=== PATIENT | female | born 1950 | race African-American/Black ===

== ENCOUNTER 2018-12-01 16:38 | Emergency (ER) | payer MEDICARE, OTHER ==
[~2018-12-01] VITALS: Ht 157.5 cm; Wt 93.4 kg
--- OUTSIDE RECORDS SUMMARY | 2018-12-01 16:41 | XMS REPORT | Clinical Summary ---
Author Author BURTON exsulinBenewah Community HospitalVital Metrix [facility] Organization [facility] Address Unknown Phone Unavailable Care Team Providers Care Deli Associate Name Role Phone Landry Kerr MD PCP Unavailable Allergies Comments Active Allergy Reactions Severity Noted Date Ciprofloxacin Swelling Low 02/23/2014 Meperidine Itching, Low 02/23/2014 Swelling Erythromycin Swelling Low 07/09/2014 Pt not aware of this allergy. Erythropoietin Analogues 02/23/2014 Fever. Pneumococcal Vaccine Swelling, Medium 02/23/2014 Other (See Comments) Butorphanol Tartrate Itching, Low 02/23/2014 Swelling Pentazocine Lactate Itching, Low 02/23/2014 Swelling Medications End Date Status Medication Sig Dispensed Refills Start Date Active traMADol (ULTRAM) 50 mg Take 50 mg by 0 tablet mouth every 6 (six) hours as needed for Pain. Active gabapentin (NEURONTIN) Take 600 mg 0 600 MG tablet by mouth 4 (four) times daily . Active diazepam (VALIUM) 10 MG Take 5 mg by 0 tablet mouth as needed for Anxiety . Active baclofen (LIORESAL) 10 MG Take 10 mg by 0 tablet mouth as needed . Active amitriptyline (ELAVIL) Take 100 mg 0 100 MG tablet by mouth every night as needed for Sleep. Active loratadine (CLARITIN) 10 Take 10 mg by 0 mg tablet mouth daily. Active oxybutynin (DITROPAN-XL) Take 5 mg by 0 5 MG 24 hr tablet mouth daily . Active azelastine (ASTELIN) 137 2 sprays by 0 mcg (0.1 %) nasal spray Nasal route daily Use in each nostril as directed . Active budesonide-formoterol Inhale 2 0 (SYMBICORT) 80-4.5 puffs by mcg/actuation inhaler mouth via inhaler as needed . Active levalbuterol (XOPENEX Inhale 1 puff 0 HFA) 45 mcg/actuation by mouth via inhaler inhaler as needed for Wheezing . Active SUMAtriptan (IMITREX) 25 Take 25 mg by 0 MG tablet mouth every 2 (two) hours as needed for Migraine. Active pantoprazole (PROTONIX) Take 40 mg by 0 40 MG tablet mouth daily. Active interferon beta-1a Inject 0 (AVONEX) 30 mcg/0.5 mL intramuscular PnIj ly once a week. Active aspirin 81 MG EC tablet Take 81 mg by 0 mouth daily. Active ipratropium (ATROVENT) Take 500 mcg 0 0.02 % nebulizer solution by nebulization as needed for Wheezing. Active carvedilol (COREG) 12.5 Take 12.5 mg 0 MG tablet by mouth 2 (two) times daily with breakfast and dinner. Active losartan-hydroCHLOROthiaz Take 1 tablet 0 olivia (HYZAAR) 50-12.5 mg by mouth per tablet daily. 03/27/2018 Discontinued metoprolol (LOPRESSOR) 25 Take 25 mg by 0 MG tablet mouth 2 (two) times daily. 01/28/2018 Discontinued losartan (COZAAR) 50 MG Take 100 mg 0 tablet by mouth daily . 03/27/2018 Discontinued levalbuterol (XOPENEX) Take 1 ampule 0 0.31 mg/3 mL nebulizer by solution nebulization every 4 (four) hours as needed for Wheezing. 02/28/2018 losartan (COZAAR) 100 MG Take 1 tablet 30 tablet 0 tablet (100 mg 8 total) by mouth daily for 30 days. 03/27/2018 Discontinued cyclobenzaprine Take 1 tablet 10 tablet 0 (FLEXERIL) 10 MG tablet (10 mg total) 8 by mouth 2 (two) times daily as needed for up to 10 doses. Active Problems Problem Noted Date Hypertensive urgency 01/26/2018 Acute chest pain 01/25/2018 Arthritis of right knee 05/05/2015 Knee joint replacement status 05/05/2015 Encounters Care Team Description Date Type Specialty Bashir Rivera MD 03/28/2018 Anesthesia Event London Quiroga MD INJECTION,EPIDURAL STEROID LUMBAR TRANSFORAMINAL 03/28/2018 Surgery London Quiroga MD 03/28/2018 Hospital Encounter Resource, [facility] Phone 03/27/2018 Hospital Pre-Admission Testing Encounter Aleksandr Bonilla MD Bilateral leg pain (Primary Dx); Essential hypertension; Obesity, unspecified classification, unspecified obesity type, unspecified whether serious comorbidity present 02/12/2018 Emergency Emergency Medicine 01/26/2018 Orders Only General Internal Medicine Alexis Bates DO Maredia, Mustaq Kasam, MD Acute chest pain (Primary Dx); Tension headache; Hypertensive urgency; Obesity (BMI 30-39.9) 01/24/2018 Hospital General Internal Medicine - Encounter 01/28/2018 after 11/30/2017 Social History Date Tobacco Use Types Packs/Day Years Used Quit: 08/10/1985 Former Smoker 2 10 Smokeless Tobacco: Never Used Tobacco Cessation: Counseling Given: No Comments: QUIT 1985 Alcohol Use Drinks/Week oz/Week Comments Yes "very seldom" Sex Assigned at Date Recorded Not on file Industry Job Start Date Occupation Not on file Not on file Not on file Travel End Travel History Travel Start No recent travel history available. Last Filed Vital Signs Time Taken Vital Sign Reading 03/28/2018 1:59 PM JEWELRY FINISHER Blood Pressure 121/89 03/28/2018 1:59 PM JEWELRY FINISHER Pulse 64 03/28/2018 1:59 PM JEWELRY FINISHER Temperature 36.7 C (98 F) 03/28/2018 1:59 PM JEWELRY FINISHER Respiratory Rate 14 03/28/2018 1:59 PM JEWELRY FINISHER Oxygen Saturation 98% 01/28/2018 9:38 AM CDT Inhaled Oxygen 21% Concentration 03/28/2018 10:39 AM JEWELRY FINISHER Weight 92.4 kg (203 lb 9.6 oz) 03/28/2018 10:39 AM JEWELRY FINISHER Height 162.6 cm (5' 4") 03/28/2018 10:39 AM JEWELRY FINISHER Body Mass Index 34.95 Plan of Treatment Not on file Implants Device Identifier Shelf Expiration Date Model / Serial / Lot Implanted Type Area Manufactur er 11/16/2016 [id number] / / [id number] Cement,Bone Simplex Hv Full Dose Cement/Patrick Right: Knee Tori (Each) - [id number] ler/Adhesi Orthopaedi Implanted: Qty: 1 on 05/05/2015 by ve cs Destiny Stack MD 04/20/2025 [id number] / / [id number] Tibial Tray,[place] Partial Knee Joints Right: Knee [employer] Medial Left Std Sz B - [id number] Implanted: Qty: 1 on 05/05/2015 by Destiny Stack MD 03/10/2025 [id number] / / [id number] Fem Comp,[place]king Partial Knee Uni Joints Right: Knee [employer] Cocr Small - [id number] Implanted: Qty: 1 on 05/05/2015 by Destiny Stack MD 02/23/2020 [id number] / / [id number] Tibial Bearing,Meniscal Mayking Joints Right: Knee BIOMET/O.E Anatomic Small Right Sz 4 - .C. [id number] Implanted: Qty: 1 on 05/05/2015 by Destiny Stack MD Procedures Comments Procedure Name Priority Date/Time Associated Diagnosis FL FACING END TRIMMER IN OR 30 Routine 03/28/2018 MINUTE INCREMENTS 1:38 PM JEWELRY FINISHER PROCEDURE W/ C-ARM 03/28/2018 Osteoarthritis of spine 1:00 PM JEWELRY FINISHER with radiculopathy, lumbar region Special Needs (C-ARM) INJECTION,EPIDURAL 03/28/2018 Osteoarthritis of spine STEROID LUMBAR 1:00 PM JEWELRY FINISHER with radiculopathy, TRANSFORAMINAL lumbar region Special Needs (C-ARM) ED ECG INTERPRETATION Routine 02/14/2018 11:38 PM CDT VENOUS DOPPLER LEG, LEFT STAT 02/12/2018 5:50 PM CDT ECG 12-LEAD Routine 02/12/2018 2:52 PM CDT Procedure Note - Interface, External Ris In - 02/12/2018 5:19 PM CDT Ventricula r Rate 63 BPM Atrial Rate 63 BPM P-R Interval 176 ms QRS Duration 88 ms Q-T Interval 416 ms QTC Calculatio n(Bazett) 425 ms P Abernathy 70 degrees R Abernathy 38 degrees T Abernathy 34 degrees Normal sinus rhythm Normal ECG When compared with ECG of 8 12:06, No significan t change was found ECG 12-LEAD STAT 02/12/2018 2:52 PM CDT CBC W/PLT COUNT & AUTO STAT 02/12/2018 DIFFERENTIAL 2:12 PM CDT B-TYPE NATRIURETIC FACTOR STAT 02/12/2018 (BNP) 2:12 PM CDT PT/APTT STAT 02/12/2018 2:12 PM CDT CBC W/PLT COUNT & AUTO STAT 02/12/2018 DIFFERENTIAL 2:12 PM CDT TROPONIN I STAT 02/12/2018 2:12 PM CDT MAGNESIUM STAT 02/12/2018 2:12 PM CDT BASIC METABOLIC PANEL (7) STAT 02/12/2018 2:12 PM CDT XR CHEST 1 VIEW STAT 02/12/2018 PORTABLE/BEDSIDE 2:06 PM CDT RHYTHM STRIP - SCAN 01/29/2018 3:31 PM CDT REPORT OF PROCEDURE - 01/29/2018 ENDOSCOPY SCAN 3:30 PM CDT MR ORBIT FACE NECK W & WO STAT 01/28/2018 CONTRAST 12:09 PM CDT MR BRAIN WITH IV CONTRAST STAT 01/28/2018 12:09 PM CDT MR BRAIN WITHOUT IV Routine 01/27/2018 CONTRAST 4:34 PM CDT NM PARATHYROID IMAGING Routine 01/27/2018 WITH TOMOGRAPHIC SPECT 3:49 PM CDT BASIC METABOLIC PANEL (7) Routine 01/27/2018 5:59 AM CDT CALCIUM, 24 HOUR URINE Routine 01/26/2018 10:28 PM CDT ECHOCARDIOGRAM REPORT - 01/26/2018 SCAN 12:20 PM CDT 2D ECHO W/ DOPPLER Routine 01/26/2018 (CW/PW/COLOR) 9:26 AM CDT TROPONIN I STAT 01/26/2018 8:39 AM CDT VITAMIN D, 25-HYDROXY Routine 01/26/2018 3:46 AM CDT COMPREHENSIVE METABOLIC Routine 01/26/2018 PANEL 3:46 AM CDT CALCIUM, IONIZED Routine 01/26/2018 3:46 AM CDT TROPONIN I STAT 01/26/2018 1:16 AM CDT TSH/FREE T4 IF INDICATED Routine 01/25/2018 5:16 PM CDT PTH, INTACT Routine 01/25/2018 5:16 PM CDT TROPONIN I STAT 01/25/2018 7:56 AM CDT BASIC METABOLIC PANEL (7) STAT 01/25/2018 5:31 AM CDT CBC W/PLT COUNT & AUTO STAT 01/25/2018 DIFFERENTIAL 4:07 AM CDT CBC W/PLT COUNT & AUTO STAT 01/25/2018 DIFFERENTIAL 4:07 AM CDT LIPID PANEL STAT 01/25/2018 4:07 AM CDT HEMOGLOBIN A1C STAT 01/25/2018 4:07 AM CDT ED ECG INTERPRETATION Routine 01/25/2018 3:[address]/CTA BRAIN STAT 01/24/2018 10:15 PM CDT XR CHEST 1 VIEW STAT 01/24/2018 PORTABLE/BEDSIDE 9:19 PM CDT CBC W/PLT COUNT & AUTO STAT 01/24/2018 DIFFERENTIAL 9:00 PM CDT B-TYPE NATRIURETIC FACTOR STAT 01/24/2018 (BNP) 9:00 PM CDT PT/APTT STAT 01/24/2018 9:00 PM CDT CBC W/PLT COUNT & AUTO STAT 01/24/2018 DIFFERENTIAL 9:00 PM CDT TROPONIN I STAT 01/24/2018 9:00 PM CDT MAGNESIUM STAT 01/24/2018 9:00 PM CDT BASIC METABOLIC PANEL (7) STAT 01/24/2018 9:00 PM CDT after 11/30/2017 Results * [place] Oil Fire Specialist in OR 30 minute increments (03/28/2018 1:38 PM JEWELRY FINISHER) Specimen Narrative Performed At FINAL REPORT [facility] Fluoroscopic spot imaging was performed at the time of the procedure by the ordering service. This examination is nondiagnostic. Fluoroscopy was not performed by the undersigned, and the radiologist was not present at the time of examination. Interpretation of the images was not requested. Total fluoroscopy time:28.7 seconds Total number of films: 2 Please refer to the referring physician's procedure report for complete detail. Signed: Karyna Hoang MD Report Verified Date/Time:03/28/2018 15:12:50 Reading Location: [address] Radiology Reading Room Procedure Note Interface, External Ris In - 03/28/2018 3:15 PM JEWELRY FINISHER FINAL REPORT Fluoroscopic spot imaging was performed at the time of the procedure by the ordering service. This examination is nondiagnostic. Fluoroscopy was not performed by the undersigned, and the radiologist was not present at the time of examination. Interpretation of the images was not requested. Total fluoroscopy time: 28.7 seconds Total number of films: 2 Please refer to the referring physician's procedure report for complete detail. Signed: Karyna Hoang MD Report Verified Date/Time: 03/28/2018 15:12:50 Reading Location: [address] Radiology Reading Room Performing Organization Address City/State/Zipcode Phone Number RIS * ED ECG Interpretation (02/14/2018 11:38 PM CDT) Only the most recent of 2 results within the time period is included. Narrative Performed At LyleAleksandr MD 02/14/2018 11:38 PM ECG/EKG Interpretation Date/Time: 02/12/2018 2:52 PM Performed by: ALEKSANDR BONILLA Authorized by: ALEKSANDR BONILLA The ECG was interpreted by ED physician. The ECG is interpreted as sinus rhythm. Rate is normal rate. Heart rate is 63 BPM. Conduction: conduction normal. ST segments normal. T waves normal. Abernathy is normal. Clinical Impression: abnormal ECGECG reviewed and does not meet STEMI criteria. Patient tolerance: Patient tolerated the procedure well with no immediate complications * Venous doppler leg, left (02/12/2018 5:50 PM CDT) Ejection Fraction [facility] ECHO HEARTLAB [facility] Specimen Impressions Performed At Left Impression [facility] 1. There is no deep venous obstruction in the common femoral, profunda [facility] femoral, femoral, popliteal, posterior tibial or peroneal veins. 2. There is no superficial venous obstruction in the great saphenous vein. Conclusions Summary Venous duplex imaging and compression of the left lower extremity were performed. The veins were adequately visualized. The left venous system was patent and compressible with no evidence of thrombus. The venous Doppler waveforms were phasic with respiration . Signature Velocities are measured in cm/s ; Diameters are measured in cm Narrative Performed At PV LAB - Lower Extremities DVT Study [facility]CHO [facility]ART[facility] Demographics [facility] Patient Name PIERO STOVER Date of Study02/12/2018 CHRIS [id number] Visit Number [id number] Gender Female Accession Number [id number] Date of Birth1950 [facility]isa Hernandez Physician SonographerKailash DavilaInterpreting Marcy Castillo, Michelle SHARP, BIB Procedure Type of Study: Veins: Lower Extremities DVT Study, VENOUS DOPPLER LEG, LEFT. Indications for Study:Leg swelling. Patient Status:STAT. Study Location:Portable. Technical Quality:Adequate visualization. Risk Factors History of Disease +---------+----+ + !Diagnosis!Date!Comments ! +---------+----+ + !Other!!Anxiety, Arthritis, Asthma, CVA, MS, Morbid Obesity! +---------+----+ + Procedure Note Interface, External Ris In - 02/12/2018 7:09 PM CDT PV LAB - Lower Extremities DVT Study Demographics Patient Name PIERO STOVER Date of Study 02/12/2018 CHRIS Age 67 Visit Number [id number] Gender Female Accession Number [id number] Date of 1950 Referring [facility] Room Number ED8 Physician Assistant Boiler Operator Kailash Davila Interpreting Marcy Castillo, T Physician , BIB Procedure Type of Study: Veins: Lower Extremities DVT Study, VENOUS DOPPLER LEG, LEFT. Indications for Study:Leg swelling. Patient Status:STAT. Study Location:Portable. Technical Quality:Adequate visualization. Risk Factors History of Disease +---------+----+ + !Diagnosis!Date!Comments ! +---------+----+ + !Other ! !Anxiety, Arthritis, Asthma, CVA, MS, Morbid Obesity ! +---------+----+ + Impressions Left Impression 1. There is no deep venous obstruction in the common femoral, profunda femoral, femoral, popliteal, posterior tibial or peroneal veins. 2. There is no superficial venous obstruction in the great saphenous vein. Conclusions Summary Venous duplex imaging and compression of the left lower extremity were performed. The veins were adequately visualized. The left venous system was patent and compressible with no evidence of thrombus. The venous Doppler waveforms were phasic with respiration . Signature Velocities are measured in cm/s ; Diameters are measured in cm Performing Organization Address City/State/[facility] Phone Number [facility] E[facility]ART[facility] * ECG 12 lead (02/12/2018 2:52 PM CDT) Specimen Narrative Performed At Ventricular Rate 63 BPM GE MUSE Atrial Rate 63 BPM P-R Interval 176 ms QRS Duration 88 ms Q-T Interval 416 ms QTC Calculation(Bazett) 425 ms P Abernathy 70 degrees R Abernathy 38 degrees T Abernathy 34 degrees Normal sinus rhythm Normal ECG When compared with ECG of 15-NOV-2017 12:06, No significant change was found Confirmed by MD DEGROOT JOSEPH P ([id number]) on 02/13/2018 6:16:35 AM Procedure Note Interface, External Ris In - 02/13/2018 6:16 AM CDT Ventricular Rate 63 BPM Atrial Rate 63 BPM P-R Interval 176 ms QRS Duration 88 ms Q-T Interval 416 ms QTC Calculation(Bazett) 425 ms P Abernathy 70 degrees R Abernathy 38 degrees T Abernathy 34 degrees Normal sinus rhythm Normal ECG When compared with ECG of 15-NOV-2017 12:06, No significant change was found Confirmed by MD DEGROOT JOSEPH P ([id number]) on 02/13/2018 6:16:35 AM Performing Organization Address [facility] Phone Number GE MUSE * PT/PTT (02/12/2018 2:12 PM CDT) Only the most recent of 2 results within the time period is included. Protime 13.9 11.7 - 14.7 seconds [facility] INR 1.1 <=5.9 [facility] PTT 30.9 22.5 - 36.0 seconds [facility] Specimen Blood Narrative Performed At RECOMMENDED COUMADIN/WARFARIN INR THERAPY RANGES [facility] STANDARD DOSE: 2.0 - 3.0 Includes: PROPHYLAXIS for venous thrombosis, [facility] systemic embolization; TREATMENT for venous thrombosis and/or pulmonary embolus. HIGH RISK: Target INR is 2.5-3.5 for patients with mechanical heart valves. Performing Organization Address City/State/Zipcode Phone Number [facility] [address] [place] [address] MEDICAL CENTER * CBC with platelet count + automated diff (02/12/2018 2:12 PM CDT) Only the most recent of 3 results within the time period is included. WBC 6.9 3.5 - 10.5 K/L [facility] RBC 4.29 3.93 - 5.22 M/L [facility] Hemoglobin 11.8 11.2 - 15.7 GM/DL [facility] Hematocrit 38.1 34.1 - 44.9 % [facility] MCV 88.8 79.4 - 94.8 fL [facility] MCH 27.5 25.6 - 32.2 pg [facility] MCHC 31.0 (L) 32.2 - 35.5 GM/DL [facility] RDW 13.3 11.7 - 14.4 % [facility] Platelets 281 150 - 450 K/CU MM [facility] MPV 10.0 9.4 - 12.3 fL [facility] nRBC 0 0 - 0 /100 WBC [facility] % Neutros 57 % [facility] % Lymphs 28 % [facility] % Monos 13 % [facility] % Eos 2 % [facility] % Baso 1 % [facility] # Neutros 3.90 1.56 - 6.13 K/L [facility] # Lymphs 1.90 1.18 - 3.74 K/L [facility] # Monos 0.88 (H) 0.24 - 0.36 K/L [facility] # Eos 0.14 0.04 - 0.36 K/L [facility] # Baso 0.07 0.01 - 0.08 K/L [facility] Immature 0 0 - 1 % [facility] Granulocytes-Relative [facility] Specimen Blood Performing Organization Address [facility] [place] [address] [phone] * Troponin I (02/12/2018 2:12 PM CDT) Only the most recent of 5 results within the time period is included. Troponin I <0.01 0.00 - 0.03 ng/mL [facility] Specimen Blood Narrative Performed At Troponin I (TnI) levels must be interpreted in the context of the presenting [facility] symptoms and the clinical findings. Elevated TnI levels indicate myocardial [facility] damage, but are not specific for ischemic heart disease. Elevated TnI levels are seen in patients with other cardiac conditions (including myocarditis and congestive heart failure), and slight TnI elevations occur in patients with other conditions, including sepsis, renal failure, acidosis, acute neurological disease, and persistent tachyarrhythmia. Performing Organization Address [facility] Phone Number [address] * B-type Natriuretic Factor (BNP) (02/12/2018 2:12 PM CDT) Only the most recent of 2 results within the time period is included. BNP 105 (H) 0 - 100 pg/mL [facility] Specimen Blood Performing Organization Address [facility] Phone Number [place] [phone] [place] [address] * Magnesium (02/12/2018 2:12 PM CDT) Only the most recent of 2 results within the time period is included. Magnesium 2.2 1.6 - 2.6 mg/dL [facility] Specimen Blood Performing Organization Address [facility] [place] [address] [phone] [address] * Basic Metabolic Panel (02/12/2018 2:12 PM CDT) Only the most recent of 4 results within the time period is included. Sodium 142 136 - 145 meq/L [facility] Potassium 3.9 3.5 - 5.1 meq/L [facility] Chloride 107 98 - 107 meq/L [facility] CO2 27 22 - 29 meq/L [facility] BUN 13 7 - 21 mg/dL [facility] Creatinine 0.85 0.57 - 1.25 mg/dL [facility] Glucose 88 70 - 105 mg/dL [facility] Calcium 9.9 8.4 - 10.2 mg/dL [facility] EGFR 81Comment: ESTIMATED GFR IS mL/min/1.73 sq m [facility] NOT ACCURATE CREATININE [facility] CLEARANCE IN PREDICTING GLOMERULAR FILTRATION RATE. ESTIMATED GFR IS NOT APPLICABLE FOR DIALYSIS PATIENTS. Specimen Blood Performing Organization Address City/State/Zipcode Phone Number [facility] [address] [place] [address] MEDICAL CENTER * XR chest 1 view portable / bedside (02/12/2018 2:06 PM CDT) Only the most recent of 2 results within the time period is included. Specimen Narrative Performed At FINAL REPORT [facility] EXAM: Frontal chest radiograph HISTORY PROVIDED: Leg swelling COMPARISON: 01/24/2018 IMPRESSION: The lungs are clear without focal consolidation. There may be a trace left pleural effusion given minimal blunting of the left costophrenic angle. No discernible pneumothorax. The cardiomediastinal silhouette is within normal limits. The thoracic aorta is tortuous. No acute osseous abnormality. Signed: Sergio Vargas MD Report Verified Date/Time:02/12/2018 14:54:03 Reading Location: [facility] Mammo Reading Room Procedure Note Interface, External Ris In - 02/12/2018 2:56 PM CDT FINAL REPORT EXAM: Frontal chest radiograph HISTORY PROVIDED: Leg swelling COMPARISON: 01/24/2018 IMPRESSION: The lungs are clear without focal consolidation. There may be a trace left pleural effusion given minimal blunting of the left costophrenic angle. No discernible pneumothorax. The cardiomediastinal silhouette is within normal limits. The thoracic aorta is tortuous. No acute osseous abnormality. Signed: Sergio Vargas MD Report Verified Date/Time: 02/12/2018 14:54:03 [facility] Performing Organization Address City/State/Zipcode Phone Number [place] RIS * RHYTHM STRIP - SCAN (01/29/2018 3:31 PM CDT) Narrative Performed At * EKG-SCANNED (01/29/2018 3:30 PM CDT) Narrative Performed At * MR brain with IV contrast (01/28/2018 12:09 PM CDT) Specimen Narrative Performed At FINAL REPORT [facility] MRI brain and orbits with and without contrast Comparison:CTA February 03, 2018, MRI January 27 Reason for exam: Multiple sclerosis Discussion: T1 precontrast and multiplanar T1 postcontrast MR imaging of the brain was provided. Reconstructed postcontrast renderings were provided. Dedicated axial and coronal pre and postcontrast orbital imaging was performed as well using T1 and T2 sequences with appropriate use of fat saturation. Postcontrast imaging is motion degraded. The study is therefore limited for detecting subtle enhancing foci. No grossly apparent abnormal cerebral enhancement is identified. Orbital imaging revealed no convincing abnormality. Prominent superior ophthalmic veins are thought to be a normal variant. The globes, optic nerve/sheath complexes, intraconal regions, extraocular musculature, extraconal regions, cavernous sinuses, optic chiasm, and parasellar regions are within normal limits. Impressions: 1. Motion degraded postcontrast brain evaluation albeit with no grossly apparent pathologic enhancement. Consider follow-up imaging as clinically warranted. 2. Unremarkable orbits. Signed: Roberto Parmar MD Report Verified Date/Time:01/28/2018 14:05:18 Reading Location: [facility] [id number] Neuro Reading Room Procedure Note Interface, External Ris In - 01/28/2018 2:07 PM CDT FINAL REPORT MRI brain and orbits with and without contrast Comparison: CTA February 03, 2018, MRI January 27 Reason for exam: Multiple sclerosis Discussion: T1 precontrast and multiplanar T1 postcontrast MR imaging of the brain was provided. Reconstructed postcontrast renderings were provided. Dedicated axial and coronal pre and postcontrast orbital imaging was performed as well using T1 and T2 sequences with appropriate use of fat saturation. Postcontrast imaging is motion degraded. The study is therefore limited for detecting subtle enhancing foci. No grossly apparent abnormal cerebral enhancement is identified. Orbital imaging revealed no convincing abnormality. Prominent superior ophthalmic veins are thought to be a normal variant. The globes, optic nerve/sheath complexes, intraconal regions, extraocular musculature, extraconal regions, cavernous sinuses, optic chiasm, and parasellar regions are within normal limits. Impressions: 1. Motion degraded postcontrast brain evaluation albeit with no grossly apparent pathologic enhancement. Consider follow-up imaging as clinically warranted. 2. Unremarkable orbits. Signed: Roberto Parmar MD Report Verified Date/Time: 01/28/2018 14:05:18 Reading Location: [address] Neuro Reading Room Performing Organization Address City/State/Zipcode Phone Number [facility] * MR orbit face neck without & with IV contrast (01/28/2018 12:09 PM CDT) Specimen Narrative Performed At FINAL REPORT [employer] MRI brain and orbits with and without contrast Comparison:CTA February 03, 2018, MRI January 27 Reason for exam: Multiple sclerosis Discussion: T1 precontrast and multiplanar T1 postcontrast MR imaging of the brain was provided. Reconstructed postcontrast renderings were provided. Dedicated axial and coronal pre and postcontrast orbital imaging was performed as well using T1 and T2 sequences with appropriate use of fat saturation. Postcontrast imaging is motion degraded. The study is therefore limited for detecting subtle enhancing foci. No grossly apparent abnormal cerebral enhancement is identified. Orbital imaging revealed no convincing abnormality. Prominent superior ophthalmic veins are thought to be a normal variant. The globes, optic nerve/sheath complexes, intraconal regions, extraocular musculature, extraconal regions, cavernous sinuses, optic chiasm, and parasellar regions are within normal limits. Impressions: 1. Motion degraded postcontrast brain evaluation albeit with no grossly apparent pathologic enhancement. Consider follow-up imaging as clinically warranted. 2. Unremarkable orbits. Signed: Roberto Parmar MD Report Verified Date/Time:01/28/2018 14:05:18 Reading Location: [address] Neuro Reading Room Procedure Note Interface, External Ris In - 01/28/2018 2:07 PM CDT FINAL REPORT MRI brain and orbits with and without contrast Comparison: CTA February 03, 2018, MRI January 27 Reason for exam: Multiple sclerosis Discussion: T1 precontrast and multiplanar T1 postcontrast MR imaging of the brain was provided. Reconstructed postcontrast renderings were provided. Dedicated axial and coronal pre and postcontrast orbital imaging was performed as well using T1 and T2 sequences with appropriate use of fat saturation. Postcontrast imaging is motion degraded. The study is therefore limited for detecting subtle enhancing foci. No grossly apparent abnormal cerebral enhancement is identified. Orbital imaging revealed no convincing abnormality. Prominent superior ophthalmic veins are thought to be a normal variant. The globes, optic nerve/sheath complexes, intraconal regions, extraocular musculature, extraconal regions, cavernous sinuses, optic chiasm, and parasellar regions are within normal limits. Impressions: 1. Motion degraded postcontrast brain evaluation albeit with no grossly apparent pathologic enhancement. Consider follow-up imaging as clinically warranted. 2. Unremarkable orbits. Signed: Roberto Parmar MD Report Verified Date/Time: 01/28/2018 14:05:18 Reading Location: [address] Neuro Reading Room Performing Organization Address City/State/Zipcode Phone Number [facility] * MR brain without IV contrast (01/27/2018 4:34 PM CDT) Specimen Narrative Performed At FINAL REPORT [employer] MRI Brain without contrast Clinical History: encephalopathy Technique: MRI of the brain utilizing axial T2, FLAIR, GRE, DWI; sagittal and coronal T1-weighted images. Comparisons: CT 01/24/2018 Findings: There is no evidence of acute infarct or hemorrhage. There is mild to moderate periventricular and subcortical white matter T2 hyperintensity, which is nonspecific but compatible with chronic microvascular ischemic change. There is mild generalized parenchymal volume loss without hydrocephalus, midline shift, or apparent mass effect. There are no extra-axial fluid collections. The craniocervical junction is preserved. The major intracranial flow-voids appear patent. IMPRESSION: No evidence of acute infarct, hemorrhage, or hydrocephalus. Chronic microvascular ischemic disease with generalized parenchymal volume loss. Signed: Lara Lafleur MD Report Verified Date/Time:01/27/2018 17:48:49 Reading Location: [facility] Radiology Reading Room Procedure Note Interface, External Ris In - 01/27/2018 5:51 PM CDT FINAL REPORT MRI Brain without contrast Clinical History: encephalopathy Technique: MRI of the brain utilizing axial T2, FLAIR, GRE, DWI; sagittal and coronal T1-weighted images. Comparisons: CT 01/24/2018 Findings: There is no evidence of acute infarct or hemorrhage. There is mild to moderate periventricular and subcortical white matter T2 hyperintensity, which is nonspecific but compatible with chronic microvascular ischemic change. There is mild generalized parenchymal volume loss without hydrocephalus, midline shift, or apparent mass effect. There are no extra-axial fluid collections. The craniocervical junction is preserved. The major intracranial flow-voids appear patent. IMPRESSION: No evidence of acute infarct, hemorrhage, or hydrocephalus. Chronic microvascular ischemic disease with generalized parenchymal volume loss. Signed: Lara Lafleur MD Report Verified Date/Time: 01/27/2018 17:48:49 Reading Location: [facility] Radiology Reading Room Performing Organization Address City/State/Zipcode Phone Number [facility] * NM parathyroid scan with tomographic SPECT (01/27/2018 3:49 PM CDT) Specimen Narrative Performed At FINAL REPORT [employer] PROCEDURE: PARATHYROID SCAN, with SPECT CPT CODE:98458 INDICATION:History of primary hyperthyroidism, recent admission for uncontrollable hypertension PROTOCOL:25.3 mCi of Tc-99m sestamibi was injected intravenously.Planar imaging of the head/neck and chest was performed shortly after tracer injection and was repeated approximately 3 hours later. Limited SPECT images were obtained for tracer localization. FINDINGS: Early images show tracer uptake in the salivary glands, the thyroid gland, and the heart. Delayed images show substantial washout of tracer from the thyroid gland. No focal abnormality is noted in the thyroid bed or mediastinum. IMPRESSION:Normal radionuclide parathyroid scan. There is no focal accumulation to indicate parathyroid adenoma. Signed: Gerardo Mart MD Report Verified Date/Time:01/27/2018 16:44:43 Reading Location: [address] Reading Room Procedure Note Interface, External Ris In - 01/27/2018 4:46 PM CDT FINAL REPORT PROCEDURE: PARATHYROID SCAN, with SPECT CPT CODE: 02137 INDICATION: History of primary hyperthyroidism, recent admission for uncontrollable hypertension PROTOCOL: 25.3 mCi of Tc-99m sestamibi was injected intravenously. Planar imaging of the head/neck and chest was performed shortly after tracer injection and was repeated approximately 3 hours later. Limited SPECT images were obtained for tracer localization. FINDINGS: Early images show tracer uptake in the salivary glands, the thyroid gland, and the heart. Delayed images show substantial washout of tracer from the thyroid gland. No focal abnormality is noted in the thyroid bed or mediastinum. IMPRESSION: Normal radionuclide parathyroid scan. There is no focal accumulation to indicate parathyroid adenoma. Signed: Gerardo Mart MD Report Verified Date/Time: 01/27/2018 16:44:43 Reading Location: [address] Reading Room Performing Organization Address City/State/Zipcode Phone Number [facility] * Calcium, 24 hour urine (01/26/2018 10:28 PM CDT) Volume, Urine 2,550 ml [facility] Calcium, Ur <2.0 mg/dL [facility] Calcium, 24hr Urine <51 50 - 300 mg/24 Hr [facility] Specimen Urine Performing Organization Address City/[facility] Phone Number [facility] [address] [place] [address] [facility] * ECHOCARDIOGRAM REPORT - SCAN (01/26/2018 12:20 PM CDT) Narrative Performed At * 2D Echo W/Doppler(CW/PW/Color) (01/26/2018 9:26 AM CDT) Ejection Fraction [facility] ECHO HEART[facility] Specimen Narrative Performed At Transthoracic Echocardiography Report (TTE) [facility] ECHO HEARTLAB Demographics [facility] Patient Name PIERO STOVER Date of Study 01/26/2018 CHRIS [id number] GenderFemale Visit Number [id number] RaceBlack [id number] Number [id number] Number Date of Birth1950 Referring Physician Alexis Bates Age67 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 Physician Procedure Type of Study TTE procedure:2DECHO W DOPPLER(CW/PW/COLOR) (Routine) Indications:Dyspnea/SOB. Clinical History ACID REFLUX, ANXIETY, ASTHMA, ARTHIRITIS, CVA, MS, HTN. Height: 64 inches Weight: 92.53 kg (204 lbs) BSA: 1.97 m^2 BMI: 35.02 kg/m^2 HR: 63 bpm BP: 150/77 mmHg Summary Normal left ventricular chamber size. Normal wall thickness. Normal overall left ventricular systolic function. No apparent segmental wall motion abnormalities. Estimated LVEF is 55-60%. No evidence of pericardial effusion. Signature Findings LeftNormal left ventricular chamber size. Normal wall thickness. Ventricle Normal overall left ventricular systolic function. No apparent segmental wall motion abnormalities. Estimated LVEF is 55-60%. Left Atrium Normal size left atrium. Right Normal right ventricle structure and function. Ventricle Right AtriumNormal right atrium. Aortic ValveNormal aortic valve structure and function. Mitral ValveNormal mitral valve structure and function. Tricuspid Normal tricuspid valve structure and function. Valve PulmonicNormal pulmonic valve structure and function. Valve Pericardium No evidence of pericardial effusion. Chambers/Structures Left Atrium LA Dimension: 3.19 cm LA Area: 15.9 cm^2 LA Volume: 44.53 ml LA Vol. Index: 23 ml/m^2 Left Ventricle LVIDd: 3.13 cmLVEDV:38.7 5 ml LVIDs: 2.14 cmLVESV:15.0 8 ml LV Septum Diastolic: 1.43 cm LV Septum Systolic: 1.8 cmLV Length: 7.43 cm LV PW Diastolic: 1.1 cm LV FS: 31.6 % LV PW Systolic: 1.54 cm LVOT Diameter: 1.86 cm LVEF: 61.1 % Right Atrium RA Systolic Pressure: 10 mmHg Right Ventricle RVOT VTI: 13.78 cm RV Systolic Pressure: 29 mmHg Aorta Ao Root S of Naty.: 2.78 cm Doppler/Quantitative Measurements Mitral Valve MV Peak E-Wave: 0.61 m/sMV Peak A-Wave: 0.8 m/s P1/2t: 71 msecE/A Ratio: 0.76 Peak Velocity: 0.96 m/s Peak Gradient: 1.48 mmHg Mean Velocity: 0.51 m/s Deceleration Time: 280.1 msec Mean Gradient: 1.24 mmHgArea (continuity): 1.9 cm^2 MV Area (PHT): 3.1 cm^2 MV VTI: 32.29 cm MV Magan. Peak: Tissue Doppler E' Septal Velocity: 0.06 m/s E' Lateral Velocity: 0.08 m/s Aortic Valve Peak Velocity: 1.24 m/sMean Velocity: 0.88 m/s Peak Gradient: 6.16 mmHg Mean Gradient: 3.47 mmHg AV Area (continuity): 2.28 cm^2 AV VTI: 26.94 cm Cusp Separation: 1.82 cm AV DVI: 0.84 LVOT Peak Velocity: 1.1 m/sPeak Gradient: 4.87 mmHg Mean Velocity: 0.74 m/s Mean Gradient: 2.49 mmHg LVOT Diameter: 1.86 cmLVOT VTI: 22.59 cm LVOT Area: 2.72 cm^2LVOT SV:61.35 ml LVOT CO: 3.87 l/min LVOT CI: 1.96 l/min/m^2 Tricuspid Valve Estimated RVSP: 29 mmHg Estimated RAP: 10 mmHg TR Velocity: 2.18 m/s TR Gradient: 19 mmHg Pulmonic Valve Peak Velocity: 0.81 m/s Peak Gradient: 2.6 mmHg Mean Velocity: 0.64 m/s Mean Gradient: 1.66 mmHg Estimated PASP: 29 mmHg Procedure Note Interface, External Ris In - 01/26/2018 11:51 AM CDT Transthoracic Echocardiography Report (TTE) Demographics Patient Name PIERO STOVER Date of Study 01/26/2018 CHRIS Gender Female Visit Number [id number] Race Black Room Number [id number] Number Date of 1950 Referring Physician Alexis Bates Age 67 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 Physician Procedure Type of Study TTE procedure:2DECHO W DOPPLER(CW/PW/COLOR) (Routine) Indications:Dyspnea/SOB. Clinical History ACID REFLUX, ANXIETY, ASTHMA, ARTHIRITIS, CVA, MS, HTN. Height: 64 inches Weight: 92.53 kg (204 lbs) BSA: 1.97 m^2 BMI: 35.02 kg/m^2 HR: 63 bpm BP: 150/77 mmHg Summary Normal left ventricular chamber size. Normal wall thickness. Normal overall left ventricular systolic function. No apparent segmental wall motion abnormalities. Estimated LVEF is 55-60%. No evidence of pericardial effusion. Signature Findings Left Normal left ventricular chamber size. Normal wall thickness. Ventricle Normal overall left ventricular systolic function. No apparent segmental wall motion abnormalities. Estimated LVEF is 55-60%. Left Atrium Normal size left atrium. Right Normal right ventricle structure and function. Ventricle Right Atrium Normal right atrium. Aortic Valve Normal aortic valve structure and function. Mitral Valve Normal mitral valve structure and function. Tricuspid Normal tricuspid valve structure and function. Valve Pulmonic Normal pulmonic valve structure and function. Valve Pericardium No evidence of pericardial effusion. Chambers/Structures Left Atrium LA Dimension: 3.19 cm LA Area: 15.9 cm^2 LA Volume: 44.53 ml LA Vol. Index: 23 ml/m^2 Left Ventricle LVIDd: 3.13 cm LVEDV:38.75 ml LVIDs: 2.14 cm LVESV:15.08 ml LV Septum Diastolic: 1.43 cm LV Septum Systolic: 1.8 cm LV Length: 7.43 cm LV PW Diastolic: 1.1 cm LV FS: 31.6 % LV PW Systolic: 1.54 cm LVOT Diameter: 1.86 cm LVEF: 61.1 % Right Atrium RA Systolic Pressure: 10 mmHg Right Ventricle RVOT VTI: 13.78 cm RV Systolic Pressure: 29 mmHg Aorta Ao Root S of Naty.: 2.78 cm Doppler/Quantitative Measurements Mitral Valve MV Peak E-Wave: 0.61 m/s MV Peak A-Wave: 0.8 m/s P1/2t: 71 msec E/A Ratio: 0.76 Peak Velocity: 0.96 m/s Peak Gradient: 1.48 mmHg Mean Velocity: 0.51 m/s Deceleration Time: 280.1 msec Mean Gradient: 1.24 mmHg Area (continuity): 1.9 cm^2 MV Area (PHT): 3.1 cm^2 MV VTI: 32.29 cm MV Magan. Peak: Tissue Doppler E' Septal Velocity: 0.06 m/s E' Lateral Velocity: 0.08 m/s Aortic Valve Peak Velocity: 1.24 m/s Mean Velocity: 0.88 m/s Peak Gradient: 6.16 mmHg Mean Gradient: 3.47 mmHg AV Area (continuity): 2.28 cm^2 AV VTI: 26.94 cm Cusp Separation: 1.82 cm AV DVI: 0.84 LVOT Peak Velocity: 1.1 m/s Peak Gradient: 4.87 mmHg Mean Velocity: 0.74 m/s Mean Gradient: 2.49 mmHg LVOT Diameter: 1.86 cm LVOT VTI: 22.59 cm LVOT Area: 2.72 cm^2 LVOT SV:61.35 ml LVOT CO: 3.87 l/min LVOT CI: 1.96 l/min/m^2 Tricuspid Valve Estimated RVSP: 29 mmHg Estimated RAP: 10 mmHg TR Velocity: 2.18 m/s TR Gradient: 19 mmHg Pulmonic Valve Peak Velocity: 0.81 m/s Peak Gradient: 2.6 mmHg Mean Velocity: 0.64 m/s Mean Gradient: 1.66 mmHg Estimated PASP: 29 mmHg Performing Organization Address City/[facility] Cent[facility]ode Phone Number [facility] ECHO HEARTLAB [facility] * Calcium, Ionized (01/26/2018 3:46 AM CDT) Calcium, Ion 1.11 (L) 1.12 - 1.27 mmol/L [facility] pH, Blood 7.31 [facility] Specimen Blood Performing Organization Address [facility] Phone Number [facility] [address] [place] [address] * Vitamin D, 25-Hydroxy (01/26/2018 3:46 AM CDT) Vitamin D 25-Hydroxy 13.0 6.6 - 49.9 ng/mL [facility] Specimen Blood Narrative Performed At Effective 02/27/2017: Reference Range Change [facility] New: 6.6-49.9 ng/mL Previous: 13.0-47.8 ng/mL [facility] Recommended Vitamin D Target Range: 30.0-40.0 ng/mL Performing Organization Address City/[facility] Centercode Phone Number [facility] [address] [place] [address] MEDICAL CENTER * Comprehensive metabolic panel (01/26/2018 3:46 AM CDT) Protein, Total 7.4 6.0 - 8.5 gm/dL [facility] Albumin 4.0 3.5 - 5.0 g/dL [facility] Alkaline Phosphatase 68 30 - 115 U/L [facility] Total Bilirubin 0.5 0.1 - 1.2 mg/dL [facility] Sodium 140 135 - 148 meq/L [facility] Potassium 3.2 (L) 3.6 - 5.5 meq/L [facility] Chloride 103 98 - 106 meq/L [facility] CO2 28 20 - 29 meq/L [facility] BUN 13 10 - 26 mg/dL [facility] Creatinine 1.05 0.50 - 1.20 mg/dL [facility] Glucose 71 70 - 110 mg/dL [facility] Calcium 9.3 8.5 - 10.5 mg/dL [facility] AST 16 5 - 40 U/L [facility] ALT 11 5 - 50 U/L [facility] EGFR 63Comment: ESTIMATED GFR IS mL/min/1.73 sq m [facility] NOT ACCURATE CREATININE [facility] CLEARANCE IN PREDICTING GLOMERULAR FILTRATION RATE. ESTIMATED GFR IS NOT APPLICABLE FOR DIALYSIS PATIENTS. Specimen Blood Performing Organization Address [facility] Phone Number [facility] [address] [place] [phone] * TSH/Free T4 If Indicated (01/25/2018 5:16 PM CDT) TSH 1.65 0.35 - 5.50 uIU/mL [facility] Specimen Blood Performing Organization Address [facility] Phone Number [facility] [address] [place] [address] [phone] * PTH, intact (01/25/2018 5:16 PM CDT) PTH 94.3 (H) 15.0 - 90.0 pg/mL [facility] Specimen Blood Performing Organization Address [facility] Cent[facility] Phone Number [facility] [address] [place] [address] [phone] * Hemoglobin A1c (01/25/2018 4:07 AM CDT) Hemoglobin A1C 5.4 4.3 - 6.1 % [facility] Specimen Blood Performing Organization Address City/[facility] Phone Number [facility] [address] [place] [address] * Lipid panel (01/25/2018 4:07 AM CDT) Triglycerides 53Comment: Specimen markedly mg/dL [facility] Cholesterol 156Comment: Specimen markedly mg/dL [facility] HDL 61 mg/dL [facility] LDL Calculated 84 mg/dL [facility] Specimen Blood Narrative Performed At Triglyceride Reference Range: [facility] Low Risk <150 LAB[facility]ATORY [id number] High Risk 200-499 Very High Risk>=500 Cholesterol Reference Range: Low Risk <200 [id number] High Risk>240 HDL Cholesterol Reference Range: Low Risk >=60 High Risk <40 LDL Cholesterol Reference Range: Optimal<100 Near [id number] Oxzhwredts130-754 [id number] Very High >=190 Performing Organization Address City/State/Zipcode Phone Number [facility] [address] [place] [address] * CTA brain (01/24/2018 10:15 PM CDT) Specimen Narrative Performed At FINAL REPORT [facility] CT, CTANGIOBRAIN BRAIN CT WITHOUT CONTRAST INDICATION: headache, hypertension, dizzy COMPARISON: CT head of the same date TECHNIQUE: Rapid acquisition spiral images were obtained between the skull base and the cranial vertex during intravenous contrast infusion to reconstruct axial images and angiographic 3D maximum intensity projections (MIP). 3-D volumetric reformatted images were created at a dedicated workstation. Precontrast images of the brain were also obtained. DOSE REDUCTION: Dose modulation, iterative reconstruction, and/or weight-based adjustment of the mA/kV was utilized to reduce the radiation dose to as low as reasonably achievable. FINDINGS: NECT BRAIN: Cerebral parenchyma: Patchy low attenuation noted in the parieto-occipital regions bilaterally as well as small focus in the left frontal pole. No disruption of the crowley-white distinction. No hemorrhage. Midline structures: Normally positioned. Cerebellum and brainstem: Normal. Ventricles: Normal volume. Extra-axial spaces: Unremarkable. Calvarium and skull base: Intact. Paranasal sinuses and mastoid air cells: Visible chambers are clear. Orbital contents: Included portions unremarkable. CTA BRAIN: Internal carotid arteries: Petrous, cavernous and supraclinoid portions patent. Middle cerebral arteries: Patent to distal branches. Anterior cerebral arteries: Patent. Intact anterior communicating artery. Basilar system: Patent vertebrobasilar system. Posterior cerebral arteries:Patent beyond the quadrigeminal segments. Venous opacification: Major dural sinuses unremarkable for bolus timing. Additional findings: None. 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 Unremarkable CTA of the head. Signed: JR Solis Robert MD Report Verified Date/Time:01/24/2018 22:54:58 Reading Location: [address] Body Reading Room Procedure Note Interface, External Ris In - 01/24/2018 10:57 PM CDT FINAL REPORT CT, CTANGIO BRAIN BRAIN CT WITHOUT CONTRAST INDICATION: headache, hypertension, dizzy COMPARISON: CT head of the same date TECHNIQUE: Rapid acquisition spiral images were obtained between the skull base and the cranial vertex during intravenous contrast infusion to reconstruct axial images and angiographic 3D maximum intensity projections (MIP). 3-D volumetric reformatted images were created at a dedicated workstation. Precontrast images of the brain were also obtained. DOSE REDUCTION: Dose modulation, iterative reconstruction, and/or weight-based adjustment of the mA/kV was utilized to reduce the radiation dose to as low as reasonably achievable. FINDINGS: NECT BRAIN: Cerebral parenchyma: Patchy low attenuation noted in the parieto-occipital regions bilaterally as well as small focus in the left frontal pole. No disruption of the crowley-white distinction. No hemorrhage. Midline structures: Normally positioned. Cerebellum and brainstem: Normal. Ventricles: Normal volume. Extra-axial spaces: Unremarkable. Calvarium and skull base: Intact. Paranasal sinuses and mastoid air cells: Visible chambers are clear. Orbital contents: Included portions unremarkable. CTA BRAIN: Internal carotid arteries: Petrous, cavernous and supraclinoid portions patent. Middle cerebral arteries: Patent to distal branches. Anterior cerebral arteries: Patent. Intact anterior communicating artery. Basilar system: Patent vertebrobasilar system. Posterior cerebral arteries:Patent beyond the quadrigeminal segments. Venous opacification: Major dural sinuses unremarkable for bolus timing. Additional findings: None. 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 Unremarkable CTA of the head. Signed: JR Solis Robert MD Report Verified Date/Time: 01/24/2018 22:54:58 Reading Location: [facility] B1 C013Y CT Body Reading Room Performing Organization Address City/State/Zipcode Phone Number GE RIS after 11/30/2017 Insurance Payer Benefit Subscriber ID Type Phone Address Plan / Group [facility] xxxxxxxxx MEDICARE MGD CARE MEDICARE HMO MEDICAID MEDICAID xxxxxxxxx Medicaid OF [place] Advance Directives Patient has advance care planning documents, and code status on file. For more i nformation, please contact: [facility] [address] [place] [address] Date Inactivated Comments Code Status Date Activated 01/28/2018 6:15 PM Full Code 01/25/2018 5:40 AM This code status was determined by: Patient 05/06/2015 10:21 PM Full Code 05/05/2015 5:37 AM This code status was determined by: Patient
--- OUTSIDE RECORDS SUMMARY | 2018-12-01 16:44 | XMS REPORT ---
Author Author [facility] Address Unknown Phone Unavailable Care Team Providers Care Physicist [employer] Name Role Phone ISHMAEL WILSON Unavailable Unavailable SUNNYJOSE Unavailable Unavailable Problems This patient has no known problems. Allergies, Adverse Reactions, Alerts This patient has no known allergies or adverse reactions. Medications This patient has no known medications. Results Test Description Test Time Test Comments Text Results Atomic Results Result Comments FL, ORACLE ARCHITECT IN OR/30 MINUTE INCREMENTS 2018-03-28 15:12:00 Reason for exam:->Bilateral L5-S1 transforaminal epidural steroid injection FINAL REPORT Fluoroscopic spot imaging was performed [...] report for complete detail. Signed: Karyna Hoang Verified Date/Time: 03/28/2018 15:12:50 Reading Location: [address] Radiology Reading Room , CHEST, 1 VIEW, NON DEPT 2018-02-12 14:54:00 Reason for exam:->LEG SWELLING FINAL REPORT EXAM: Frontal chest radiograph HISTORY PROVIDED: Leg swelling COMPARISON: 01/24/2018 IMPRESSION:The lungs are clear without focal consolidation. There may be a trace left pleural effusion given minimal blunting of the left costophrenic angle. No discernible pneumothorax. The cardiomediastinal silhouette is within normal limits. The thoracic aorta is tortuous. No acute osseous abnormality. Signed: Sergio Vargas Verified Date/Time: 02/12/2018 14:54:03 Reading Location: [facility] Mammo Reading Room ONIN I 2018-02-12 14:45:00 TROPONIN I (BEAKER) (test dmsm=146) < ng/mL 0.00-0.03 Troponin I (TnI) levels must be interpreted in the context of the presenting sym ptoms and the clinical findings. Elevated TnI levels indicate myocardial damage, but are not specific for ischemic heart disease. Elevated TnI levels are seen in patients with other cardiac conditions (including myocarditis and congestive h eart failure), and slight TnI elevations occur in patients with other conditions , including sepsis, renal failure, acidosis, acute neurological disease, and per sistent tachyarrhythmia.B-TYPE NATRIURETIC FACTOR (BNP)2018-02-12 14:45:00* Test Item Value Reference Range Comments B-TYPE NATRIURETIC PEPTIDE (BEAKER) (test pwzt=499) 105 pg/mL 0-100 [id number] 14:37:00* Test Item Value Reference Range Comments MAGNESIUM (BEAKER) (test mzlg=824) 2.2 mg/dL 1.6-2.6 BASIC METABOLIC [id number] 14:37:00* Test Item Value Reference Range Comments SODIUM (BEAKER) (test fkap=442) 142 meq/L 136-145 POTASSIUM (BEAKER) (test zoom=996) 3.9 meq/L 3.5-5.1 CHLORIDE (BEAKER) (test ztbl=359) 107 meq/L 98-107 CO2 (BEAKER) (test ygkh=134) 27 meq/L 22-29 BLOOD UREA NITROGEN (BEAKER) (test uipg=306) 13 mg/dL 7-21 CREATININE (BEAKER) (test iqgl=960) 0.85 mg/dL 0.57-1.25 GLUCOSE RANDOM (BEAKER) (test urfu=906) 88 mg/dL 70-105 CALCIUM (BEAKER) (test eube=165) 9.9 mg/dL 8.4-10.2 EGFR (BEAKER) (test bwrd=8140) 81 mL/min/1.73 sq m ESTIMATED GFR IS NOT ACCURATE CREATININE CLEARANCE IN PREDICTING GLOMERULAR FILTRATION RATE. ESTIMATED GFR IS NOT APPLICABLE FOR DIALYSIS PATIENTS. PT/[id number] 14:34:00* Test Item Value Reference Range Comments PROTIME (BEAKER) (test bczj=862) 13.9 seconds 11.7-14.7 INR (BEAKER) (test bvfx=432) 1.1 <=5.9 PARTIAL THROMBOPLASTIN TIME (BEAKER) (test jqin=441) 30.9 seconds 22.5-36.0 RECOMMENDED COUMADIN/WARFARIN INR THERAPY RANGESSTANDARD DOSE: 2.0 - 3.0 Inclu álvaro: PROPHYLAXIS for venous thrombosis, systemic embolization; TREATMENT for cedric ous thrombosis and/or pulmonary embolus.HIGH RISK: Target INR is 2.5-3.5 for pat ients with mechanical heart valves.CBC W/PLT COUNT & AUTO [id number] 14:23:00* Test Item Value Reference Range Comments WHITE BLOOD CELL COUNT (BEAKER) (test dnnn=374) 6.9 K/ L 3.5-10.5 RED BLOOD CELL COUNT (BEAKER) (test gvuc=634) 4.29 M/ L 3.93-5.22 HEMOGLOBIN (BEAKER) (test tccg=689) 11.8 GM/DL 11.2-15.7 HEMATOCRIT (BEAKER) (test clkz=169) 38.1 % 34.1-44.9 MEAN CORPUSCULAR VOLUME (BEAKER) (test kzae=795) 88.8 fL 79.4-94.8 MEAN CORPUSCULAR HEMOGLOBIN (BEAKER) (test aove=710) 27.5 pg 25.6-32.2 MEAN CORPUSCULAR HEMOGLOBIN CONC (BEAKER) (test jrwa=941) 31.0 GM/DL 32.2-35.5 RED CELL DISTRIBUTION WIDTH (BEAKER) (test xysl=478) 13.3 % 11.7-14.4 PLATELET COUNT (BEAKER) (test fcus=620) 281 K/CU MM 150-450 MEAN PLATELET VOLUME (BEAKER) (test fuge=760) 10.0 fL 9.4-12.3 NUCLEATED RED BLOOD CELLS (BEAKER) (test knev=743) 0 /100 WBC 0-0 NEUTROPHILS RELATIVE PERCENT (BEAKER) (test cpxh=217) 57 % LYMPHOCYTES RELATIVE PERCENT (BEAKER) (test aeay=943) 28 % MONOCYTES RELATIVE PERCENT (BEAKER) (test bgkc=397) 13 % EOSINOPHILS RELATIVE PERCENT (BEAKER) (test czxx=397) 2 % BASOPHILS RELATIVE PERCENT (BEAKER) (test xrer=556) 1 % NEUTROPHILS ABSOLUTE COUNT (BEAKER) (test xfdy=244) 3.90 K/ L 1.56-6.13 LYMPHOCYTES ABSOLUTE COUNT (BEAKER) (test smkr=457) 1.90 K/ L 1.18-3.74 MONOCYTES ABSOLUTE COUNT (BEAKER) (test kcjw=352) 0.88 K/ L 0.24-0.36 EOSINOPHILS ABSOLUTE COUNT (BEAKER) (test vdks=298) 0.14 K/ L 0.04-0.36 BASOPHILS ABSOLUTE COUNT (BEAKER) (test zteh=264) 0.07 K/ L 0.01-0.08 IMMATURE GRANULOCYTES-RELATIVE PERCENT (BEAKER) (test qjsu=4468) 0 % 0-1 MR, BRAIN WITH IV [id number] 14:05:00FINAL REPORT MRI brain and orbits with and [...] apparent pathologic enhancement. Consider follow-up imaging as clin ically warranted. 2. Unremarkable orbits. Signed: Roberto [facility]ort [facility] Date/Time: 01/28/2018 14:05:18 Reading Location: [facility] C013 Neuro Reading Room , ORBIT, FACE, NECK, [id number] 14:05:00Reason for exam:->MS? OPTIC NEURITISFINAL REPORT MRI brain and orbits with and [...] warranted. 2. Unremarkable orbits. Signed: Roberto Parmar Verified Date/Time: 01/28/2018 14:05:18 Reading Location: [facility] C0[facility] Neuro Reading Room , BRAIN, WITHOUT [id number] 17:48:00FINAL REPORT MRI Brain without contrast Clinical History: [...] generalized parenchymal volume loss. Signed: Lara Lafleur Verified Date/Time: 01/27/2018 17:48:49 Reading Location: [facility] Radiology Reading Room , PARATHYROID IMAGING WITH TOMOGRAPHIC [id number] 16:44:00Reason for exam:->primary hyperparathyroidismFINAL REPORT PROCEDURE: PARATHYROID SCAN, with SPECT CPT CODE: [id number] INDICATION: History of primary hyperthyroidism, recent admission [...] noted in the thyroid bed or mediastinum. I MPRESSION: Normal radionuclide parathyroid scan. There is no focal accumulat ion to indicate parathyroid adenoma. Signed: Gerardo Mart MDReport Verified Nilson e/Time: 01/27/2018 16:44:43 Reading Location: [address] IUM, 24 HOUR [id number] 14:33:00* Test Item Value Reference Range Comments VOLUME, TOTAL (BEAKER) (test watg=8789) 2550 ml CALCIUM URINE (BEAKER) (test jdit=549) < mg/dL CALCIUM, 24HR URINE (BEAKER) (test dmwh=1188) < mg/24 Hr 50-300 BASIC METABOLIC [id number] 06:49:00* Test Item Value Reference Range Comments SODIUM (BEAKER) (test dvgx=658) 141 meq/L 135-148 POTASSIUM (BEAKER) (test wfrt=405) 3.8 meq/L 3.6-5.5 CHLORIDE (BEAKER) (test csjd=988) 111 meq/L 98-106 CO2 (BEAKER) (test eris=645) 24 meq/L 20-29 BLOOD UREA NITROGEN (BEAKER) (test nxmo=608) 14 mg/dL 10-26 CREATININE (BEAKER) (test zdzi=192) 0.78 mg/dL 0.50-1.20 GLUCOSE RANDOM (BEAKER) (test vxlu=115) 87 mg/dL 70-110 CALCIUM (BEAKER) (test jzgj=518) 8.7 mg/dL 8.5-10.5 EGFR (BEAKER) (test bpry=3847) 89 mL/min/1.73 sq m ESTIMATED GFR IS NOT ACCURATE CREATININE CLEARANCE IN PREDICTING GLOMERULAR FILTRATION RATE. ESTIMATED GFR IS NOT APPLICABLE FOR DIALYSIS PATIENTS. VITAMIN D, [id number] 13:19:00* Test Item Value Reference Range Comments VITAMIN D 25-OH (BEAKER) (test nqpo=1087) 13.0 ng/mL 6.6-49.9 Effective 02/27/2017: Reference Range ChangeNew: 6.6-49.9 ng/mL Previous: 13.0 -47.8 ng/mLRecommended Vitamin D Target Range: 30.0-40.0 ng/mLTROPONIN I 2018-01-26 09:11:00* Test Item Value Reference Range Comments TROPONIN I (BEAKER) (test gury=438) < ng/mL 0.00-0.15 Troponin I (TnI) levels must be interpreted in the context of the presenting sym ptoms and the clinical findings. Elevated TnI levels indicate myocardial damage, but are not specific for ischemic heart disease. Elevated TnI levels are seen in patients with other cardiac conditions (including myocarditis and congestive h eart failure), and slight TnI elevations occur in patients with other conditions , including sepsis, renal failure, acidosis, acute neurological disease, and per sistent tachyarrhythmia.COMPREHENSIVE METABOLIC [id number] 06:28:00* Test Item Value Reference Range Comments TOTAL PROTEIN (BEAKER) (test guxh=155) 7.4 gm/dL 6.0-8.5 ALBUMIN (BEAKER) (test huoc=2785) 4.0 g/dL 3.5-5.0 ALKALINE PHOSPHATASE (BEAKER) (test axah=092) 68 U/L 30-115 BILIRUBIN TOTAL (BEAKER) (test qpyz=979) 0.5 mg/dL 0.1-1.2 SODIUM (BEAKER) (test nnla=460) 140 meq/L 135-148 POTASSIUM (BEAKER) (test bvwg=493) 3.2 meq/L 3.6-5.5 CHLORIDE (BEAKER) (test rbzd=971) 103 meq/L 98-106 CO2 (BEAKER) (test rqiu=705) 28 meq/L 20-29 BLOOD UREA NITROGEN (BEAKER) (test wmxs=793) 13 mg/dL 10-26 CREATININE (BEAKER) (test xjbn=002) 1.05 mg/dL 0.50-1.20 GLUCOSE RANDOM (BEAKER) (test cbov=574) 71 mg/dL 70-110 CALCIUM (BEAKER) (test sxkc=210) 9.3 mg/dL 8.5-10.5 AST (SGOT) (BEAKER) (test rjqw=263) 16 U/L 5-40 ALT (SGPT) (BEAKER) (test wuqa=714) 11 U/L 5-50 EGFR (BEAKER) (test kaem=0753) 63 mL/min/1.73 sq m ESTIMATED GFR IS NOT ACCURATE CREATININE CLEARANCE IN PREDICTING GLOMERULAR FILTRATION RATE. ESTIMATED GFR IS NOT APPLICABLE FOR DIALYSIS PATIENTS. CALCIUM, [id number] 04:59:00* Test Item Value Reference Range Comments CALCIUM IONIZED (BEAKER) (test qntv=284) 1.11 mmol/L 1.12-1.27 PH, BLOOD (BEAKER) (test twwx=4739) 7.31 TROPONIN [id number] 02:03:00* Test Item Value Reference Range Comments TROPONIN I (BEAKER) (test zduf=535) < ng/mL 0.00-0.15 Troponin I (TnI) levels must be interpreted in the context of the presenting sym ptoms and the clinical findings. Elevated TnI levels indicate myocardial damage, but are not specific for ischemic heart disease. Elevated TnI levels are seen in patients with other cardiac conditions (including myocarditis and congestive h eart failure), and slight TnI elevations occur in patients with other conditions , including sepsis, renal failure, acidosis, acute neurological disease, and per sistent tachyarrhythmia.TSH/FREE T4 IF [id number] 18:04:00* Test Item Value Reference Range Comments THYROID STIMULATING HORMONE (BEAKER) (test fulk=032) 1.65 uIU/mL 0.35-5.50 PTH, [id number] 18:01:00* Test Item Value Reference Range Comments PARATHYROID HORMONE INTACT (BEAKER) (test oqve=154) 94.3 pg/mL 15.0-90.0 TROPONIN [id number] 08:34:00* Test Item Value Reference Range Comments TROPONIN I (BEAKER) (test cafu=420) < ng/mL 0.00-0.15 Troponin I (TnI) levels must be interpreted in the context of the presenting sym ptoms and the clinical findings. Elevated TnI levels indicate myocardial damage, but are not specific for ischemic heart disease. Elevated TnI levels are seen in patients with other cardiac conditions (including myocarditis and congestive h eart failure), and slight TnI elevations occur in patients with other conditions , including sepsis, renal failure, acidosis, acute neurological disease, and per sistent tachyarrhythmia.BASIC METABOLIC [id number] 06:15:00* Test Item Value Reference Range Comments SODIUM (BEAKER) (test athn=131) 140 meq/L 135-148 POTASSIUM (BEAKER) (test xsvd=071) 3.7 meq/L 3.6-5.5 CHLORIDE (BEAKER) (test tuel=006) 109 meq/L 98-106 CO2 (BEAKER) (test lljo=008) 23 meq/L 20-29 BLOOD UREA NITROGEN (BEAKER) (test exwu=140) 10 mg/dL 10-26 CREATININE (BEAKER) (test yxhs=634) 0.78 mg/dL 0.50-1.20 GLUCOSE RANDOM (BEAKER) (test flgp=143) 95 mg/dL 70-110 CALCIUM (BEAKER) (test drec=909) 11.2 mg/dL 8.5-10.5 EGFR (BEAKER) (test plah=3614) 89 mL/min/1.73 sq m ESTIMATED GFR IS NOT ACCURATE CREATININE CLEARANCE IN PREDICTING GLOMERULAR FILTRATION RATE. ESTIMATED GFR IS NOT APPLICABLE FOR DIALYSIS PATIENTS. LIPID [id number] 04:42:00* Test Item Value Reference Range Comments TRIGLYCERIDES (BEAKER) (test baoh=767) 53 mg/dL Specimen markedly hemolyzed CHOLESTEROL (BEAKER) (test jtgy=293) 156 mg/dL Specimen markedly hemolyzed HDL CHOLESTEROL (BEAKER) (test tifn=771) 61 mg/dL LDL CHOLESTEROL CALCULATED (BEAKER) (test lihc=437) 84 mg/dL Triglyceride Reference Range: Low Risk <150 Borderline 150-199 High Risk 200-499 Very High Risk >=500Cholesterol Reference Range: Low Risk <200 Borderline 200-239 High Risk >240HDL Cholesterol Reference Range: Low Risk >=60 High Risk <40LDL Cholesterol Reference Range: Optimal <100 Near Optimal 100-129 Borderline 130-159 High 160-189 Very High >=190 HEMOGLOBIN [id number] 04:24:00* Test Item Value Reference Range Comments HEMOGLOBIN A1C (BEAKER) (test fejh=278) 5.4 % 4.3-6.1 CBC W/PLT COUNT & AUTO [id number] 04:16:00* Test Item Value Reference Range Comments WHITE BLOOD CELL COUNT (BEAKER) (test ogvt=268) 7.4 K/ L 4.0-10.0 RED BLOOD CELL COUNT (BEAKER) (test tbly=001) 4.28 M/ L 4.00-5.00 HEMOGLOBIN (BEAKER) (test jptv=437) 11.6 GM/DL 12.0-15.5 HEMATOCRIT (BEAKER) (test jmhx=645) 38.8 % 36.0-46.0 MEAN CORPUSCULAR VOLUME (BEAKER) (test sovh=438) 90.7 fL 82.0-99.0 MEAN CORPUSCULAR HEMOGLOBIN (BEAKER) (test szed=673) 27.1 pg 27.0-33.0 MEAN CORPUSCULAR HEMOGLOBIN CONC (BEAKER) (test uszj=620) 29.9 GM/DL 32.0-36.0 RED CELL DISTRIBUTION WIDTH (BEAKER) (test wbbs=806) 14.0 % 12.0-15.0 PLATELET COUNT (BEAKER) (test mjzr=867) 253 K/CU MM 150-430 MEAN PLATELET VOLUME (BEAKER) (test sdut=812) 10.1 fL 6.0-11.5 NUCLEATED RED BLOOD CELLS (BEAKER) (test gtnh=272) 0 /100 WBC 0-0 NEUTROPHILS RELATIVE PERCENT (BEAKER) (test jvsy=574) 59 % LYMPHOCYTES RELATIVE PERCENT (BEAKER) (test dtvb=743) 27 % MONOCYTES RELATIVE PERCENT (BEAKER) (test qnwk=568) 12 % EOSINOPHILS RELATIVE PERCENT (BEAKER) (test ntmq=001) 1 % BASOPHILS RELATIVE PERCENT (BEAKER) (test pipi=433) 0 % NEUTROPHILS ABSOLUTE COUNT (BEAKER) (test nptz=279) 4.37 K/ L 1.80-8.00 LYMPHOCYTES ABSOLUTE COUNT (BEAKER) (test aicl=052) 2.04 K/ L 1.48-4.50 MONOCYTES ABSOLUTE COUNT (BEAKER) (test suxn=442) 0.91 K/ L 0.00-1.30 EOSINOPHILS ABSOLUTE COUNT (BEAKER) (test pfsk=394) 0.07 K/ L 0.00-0.50 BASOPHILS ABSOLUTE COUNT (BEAKER) (test ymez=896) 0.03 K/ L 0.00-0.20 IMMATURE GRANULOCYTES-RELATIVE PERCENT (BEAKER) (test hhyy=8011) 0 % 0-0 CT, CTANGIO [id number] 22:54:00FINAL REPORT CT, CTANGIO BRAINBRAIN CT WITHOUT CONTRAST INDICATION: headache, hypertension, dizzy COMPARISON: CT head of the same date TECHNIQUE:Rapid acquisition spiral images were obtained between the [...] dose to as low as reasonably achievable. FINDINGS:NECT BRAIN:Cerebral parenchyma: Patchy low attenuation noted in the parieto-occipital regions bilaterally as well as small focus in the left frontal pole. No disruption of the crowley-white distinction. No hemorrhage.Midline structures: Normally positioned.Cerebellum and brainstem: Normal.Ventricles: Normal volume.Extra-axial spaces: Unrema rkable.Calvarium and skull base: Intact.Paranasal sinuses and mastoid air cells: Visible chambers are clear.Orbital contents: Included portions unremarkable. CTA BRAIN:Internal carotid arteries: Petrous, cavernous and supraclinoid portions patent. Middle cerebral arteries: Patent to distal branches.Anterior cerebral ar teries: Patent. Intact anterior communicating artery.Basilar system: Patent vert ebrobasilar system.Posterior cerebral arteries:Patent beyond the quadrigeminal s egments.Venous opacification: Major dural sinuses unremarkable for bolus timing. Additional findings: None. 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 Unremarkable CTA of the head. Signed: JR Solis Robert MDReport Verified Date/Time: 01/24/2018 22:54:58 Read ing Location: [facility] B1 C013Y CT Body Reading Room B-TYPE NATRIURETIC FACTOR (BNP) 2018-01-24 21:45:00* Test Item Value Reference Range Comments B-TYPE NATRIURETIC PEPTIDE (BEAKER) (test mryp=323) 27 pg/mL 0-100 TROPONIN [id number] 21:44:00* Test Item Value Reference Range Comments TROPONIN I (BEAKER) (test xsox=334) < ng/mL 0.00-0.15 Troponin I (TnI) levels must be interpreted in the context of the presenting sym ptoms and the clinical findings. Elevated TnI levels indicate myocardial damage, but are not specific for ischemic heart disease. Elevated TnI levels are seen in patients with other cardiac conditions (including myocarditis and congestive h eart failure), and slight TnI elevations occur in patients with other conditions , including sepsis, renal failure, acidosis, acute neurological disease, and per sistent tachyarrhythmia.BASIC METABOLIC [id number] 21:38:00* Test Item Value Reference Range Comments SODIUM (BEAKER) (test obqd=761) 139 meq/L 135-148 POTASSIUM (BEAKER) (test ftbs=189) 5.4 meq/L 3.6-5.5 Specimen markedly hemolyzed CHLORIDE (BEAKER) (test jhzk=154) 105 meq/L 98-106 CO2 (BEAKER) (test zldl=223) 22 meq/L 20-29 BLOOD UREA NITROGEN (BEAKER) (test ytmm=060) 13 mg/dL 10-26 CREATININE (BEAKER) (test oapv=048) 0.89 mg/dL 0.50-1.20 Specimen markedly hemolyzed GLUCOSE RANDOM (BEAKER) (test vtad=500) 96 mg/dL 70-110 CALCIUM (BEAKER) (test prjd=889) 11.1 mg/dL 8.5-10.5 EGFR (BEAKER) (test avqz=8977) 77 mL/min/1.73 sq m ESTIMATED GFR IS NOT ACCURATE CREATININE CLEARANCE IN PREDICTING GLOMERULAR FILTRATION RATE. ESTIMATED GFR IS NOT APPLICABLE FOR DIALYSIS PATIENTS. [id number] 21:33:00* Test Item Value Reference Range Comments PROTIME (BEAKER) (test ovey=047) 10.3 sec 9.3-12.0 INR (BEAKER) (test kqro=347) 0.9 <=5.9 PARTIAL THROMBOPLASTIN TIME (BEAKER) (test zcnr=397) 27.5 sec 23.0-35.0 RECOMMENDED COUMADIN/WARFARIN INR THERAPY RANGESSTANDARD DOSE: 2.0 - 3.0 Inclu álvaro: PROPHYLAXIS for venous thrombosis, systemic embolization; TREATMENT for cedric ous thrombosis and/or pulmonary embolus.HIGH RISK: Target INR is 2.5-3.5 for pat ients with mechanical heart valves.Final Information (Auto Output)Final Informat ion (Auto Output)Final Information (Auto Output)[id number] 21:31:00* Test Item Value Reference Range Comments MAGNESIUM (BEAKER) (test bbkw=756) 3.4 mg/dL 1.5-3.0 Specimen markedly hemolyzed RAD, CHEST, 1 VIEW, NON [id number] 21:30:00Reason for exam:-> HYPERTENSIONReason for exam:->CHEST PAINShould this be performed at the bedside?->YesFINAL REPORT History: Chest pain. Comparison: 09/30/2015 Findings: A single view of the chest is submitted. The cardiomediastinal contours are unremarkable. There is no focal consolidation, pneumothorax, large pleural effusion or evidence of overt pulmonary edema. There is no acute bony abnormality. Impression: No acute abnormality. Signed: Glenn Durham MDReport Verified Date/Time: 01/24/2018 21:30:58 Reading Location: [address] Reading Room W/PLT COUNT & AUTO DIFFERENTIAL 2018-01-24 21:06:00* Test Item Value Reference Range Comments WHITE BLOOD CELL COUNT (BEAKER) (test ytcj=804) 8.6 K/ L 4.0-10.0 RED BLOOD CELL COUNT (BEAKER) (test wxen=601) 4.68 M/ L 4.00-5.00 HEMOGLOBIN (BEAKER) (test edhi=754) 12.8 GM/DL 12.0-15.5 HEMATOCRIT (BEAKER) (test rhru=774) 42.6 % 36.0-46.0 MEAN CORPUSCULAR VOLUME (BEAKER) (test vsdz=147) 91.0 fL 82.0-99.0 MEAN CORPUSCULAR HEMOGLOBIN (BEAKER) (test bams=070) 27.4 pg 27.0-33.0 MEAN CORPUSCULAR HEMOGLOBIN CONC (BEAKER) (test jehe=547) 30.0 GM/DL 32.0-36.0 RED CELL DISTRIBUTION WIDTH (BEAKER) (test kthh=738) 14.6 % 12.0-15.0 PLATELET COUNT (BEAKER) (test qgov=254) 283 K/CU MM 150-430 MEAN PLATELET VOLUME (BEAKER) (test gfmz=429) 10.4 fL 6.0-11.5 NUCLEATED RED BLOOD CELLS (BEAKER) (test lgxm=046) 0 /100 WBC 0-0 NEUTROPHILS RELATIVE PERCENT (BEAKER) (test xvzn=015) 65 % LYMPHOCYTES RELATIVE PERCENT (BEAKER) (test rlmn=488) 25 % MONOCYTES RELATIVE PERCENT (BEAKER) (test zufn=373) 9 % EOSINOPHILS RELATIVE PERCENT (BEAKER) (test fnxv=054) 0 % BASOPHILS RELATIVE PERCENT (BEAKER) (test rxoz=294) 1 % NEUTROPHILS ABSOLUTE COUNT (BEAKER) (test lfov=768) 5.53 K/ L 1.80-8.00 LYMPHOCYTES ABSOLUTE COUNT (BEAKER) (test tmya=715) 2.13 K/ L 1.48-4.50 MONOCYTES ABSOLUTE COUNT (BEAKER) (test jpft=266) 0.80 K/ L 0.00-1.30 EOSINOPHILS ABSOLUTE COUNT (BEAKER) (test gcvl=049) 0.03 K/ L 0.00-0.50 BASOPHILS ABSOLUTE COUNT (BEAKER) (test fxnx=719) 0.06 K/ L 0.00-0.20 IMMATURE GRANULOCYTES-RELATIVE PERCENT (BEAKER) (test dksk=1807) 0 % 0-0 FL, ORACLE ARCHITECT IN OR/30 MINUTE [id number] 15:39:00Reason for exam:-> intrforamanal injectionFINAL REPORT History: Intraforaminal injection COMPARISON: None DISCUSSION: A total of 2 intraoperative images were submitted for interpretation. Neither was a radiologist present nor requested during the procedure. The findings should be correlated with intraprocedural observations. The images were presented for interpretation following completion of the examination. This is a nondiagnostic examination. The total fluoroscopy time was 43.2 seconds . A total of 2 static images were acquired. Signed: Cuauhtemoc Rain Verified Date/Time: 11/15/2017 15:39:02 Reading Location: [address] Radiology Reading Room
[2018-12-01] MEDS ORDERED: CLONIDINE HCL 0.2 MG TAB PO ONE (17:30)
[2018-12-01 21:12] VITALS: BP 152/76
== END 2018-12-01 21:37 | disposition home or self-care (01) ==
LOC: ER 16:38
DX: M79.605 Pain in left leg (principal); M79.604 Pain in right leg; R60.9 Edema, unspecified; I87.2 Venous insufficiency (chronic) (peripheral); I10 Essential (primary) hypertension
CPT/HCPCS: 93970; 99283